=== PATIENT | female | born 1965 | race Caucasian/White ===

== ENCOUNTER 2017-09-26 12:55 | Emergency (ER) | payer MEDICARE, MEDICAID ==
[~2017-09-26] VITALS: Ht 157.5 cm; Wt 73.3 kg
[~2017-09-26 12:55] MED LIST: IBUP-1986 PO
[2017-09-26 13:16] VITALS: BP 140/89
== END 2017-09-26 13:52 | disposition home or self-care (01) ==
LOC: ER 12:56
DX: S39.012A Strain of muscle, fascia and tendon of lower back, initial encounter (principal); J45.909 Unspecified asthma, uncomplicated; K21.9 Gastro-esophageal reflux disease without esophagitis; E11.9 Type 2 diabetes mellitus without complications; W18.30XA Fall on same level, unspecified, initial encounter; Y93.89 Activity, other specified; Y92.89 Other specified places as the place of occurrence of the external cause; Y99.8 Other external cause status
CPT/HCPCS: 99281

== ENCOUNTER 2017-10-02 18:10 | Emergency (ER) | payer MEDICARE, MEDICAID ==
[~2017-10-02] VITALS: Ht 157.5 cm; Wt 73.2 kg
[2017-10-02 19:27] VITALS: BP 125/79
== END 2017-10-02 19:29 | disposition home or self-care (01) ==
LOC: ER 18:13
DX: S83.002A Unspecified subluxation of left patella, initial encounter (principal); J45.909 Unspecified asthma, uncomplicated; K21.9 Gastro-esophageal reflux disease without esophagitis; E11.9 Type 2 diabetes mellitus without complications; Z90.710 Acquired absence of both cervix and uterus; Z79.899 Other long term (current) drug therapy; X58.XXXA Exposure to other specified factors, initial encounter; Y93.89 Activity, other specified; Y92.89 Other specified places as the place of occurrence of the external cause; Y99.8 Other external cause status
CPT/HCPCS: 29505; 73564; 99284

== ENCOUNTER 2019-02-26 11:57 | Emergency (ER) | payer MEDICARE, BC ==
[~2019-02-26] VITALS: Ht 157.5 cm; Wt 73.6 kg
[2019-02-26 12:02] VITALS: BP 112/78
== END 2019-02-26 15:08 | disposition home or self-care (01) ==
LOC: ER 11:58
DX: G57.62 Lesion of plantar nerve, left lower limb (principal); J45.909 Unspecified asthma, uncomplicated; K21.9 Gastro-esophageal reflux disease without esophagitis; E11.9 Type 2 diabetes mellitus without complications; Z86.69 Personal history of other diseases of the nervous system and sense organs; Z90.49 Acquired absence of other specified parts of digestive tract; Z90.710 Acquired absence of both cervix and uterus; Z98.890 Other specified postprocedural states; Z79.1 Long term (current) use of non-steroidal anti-inflammatories (NSAID); W22.8XXA Striking against or struck by other objects, initial encounter; Y93.89 Activity, other specified; Y92.89 Other specified places as the place of occurrence of the external cause; Y99.8 Other external cause status
CPT/HCPCS: 73630; 99283

== ENCOUNTER 2019-06-20 10:46 | Emergency (ER) | payer MEDICARE, MEDICAID ==
[~2019-06-20] VITALS: Ht 157.5 cm; Wt 71.4 kg
[2019-06-20] MEDS ORDERED: morphine 4 MG/ML inj SYRINge IM ONE (11:55)
[2019-06-20] MEDS ORDERED: ondansetron 4mg rapidly disintigrating tab PO ONE (11:55)
[2019-06-20] MEDS ORDERED: HYDR-4383 PO (12:53)
[2019-06-20] MEDS ORDERED: IBUP-1984 PO (12:53)
[2019-06-20] MEDS ORDERED: ONDA4TAB6 PO (12:53)
[2019-06-20 13:02] VITALS: BP 128/89
== END 2019-06-20 13:07 | disposition home or self-care (01) ==
LOC: ER 10:46
DX: S30.0XXA Contusion of lower back and pelvis, initial encounter (principal); J45.909 Unspecified asthma, uncomplicated; K21.9 Gastro-esophageal reflux disease without esophagitis; E11.9 Type 2 diabetes mellitus without complications; F10.99 Alcohol use, unspecified with unspecified alcohol-induced disorder; Z90.710 Acquired absence of both cervix and uterus; Z90.49 Acquired absence of other specified parts of digestive tract; Z98.890 Other specified postprocedural states; Z86.2 Personal history of diseases of the blood and blood-forming organs and certain disorders involving the immune mechanism; Z79.899 Other long term (current) drug therapy; W01.0XXA Fall on same level from slipping, tripping and stumbling without subsequent striking against object, initial encounter; Y93.89 Activity, other specified; Y92.89 Other specified places as the place of occurrence of the external cause; Y99.8 Other external cause status; Y90.9 Presence of alcohol in blood, level not specified
CPT/HCPCS: 72192; 96372; 99284; J2270

== ENCOUNTER 2019-11-18 10:47 | Emergency (ER) | payer MEDICARE, MEDICAID ==
[~2019-11-18] VITALS: Ht 157.5 cm; Wt 75.0 kg
[~2019-11-18 10:47] MED LIST changes: +HYDR-4383 PO; +ONDA4TAB6 PO
[2019-11-18 10:50] VITALS: BP 161/72
[2019-11-18] MEDS ORDERED: triamcinolone acetonide 40mg/ml inj IM ONE (12:15)
[2019-11-18] MEDS ORDERED: DIPH-423 PO (12:16)
[2019-11-18] MEDS ORDERED: EPIN0.3P3 IM (12:16)
== END 2019-11-18 12:42 | disposition home or self-care (01) ==
LOC: ER 10:47
DX: T63.441A Toxic effect of venom of bees, accidental (unintentional), initial encounter (principal); J45.909 Unspecified asthma, uncomplicated; K21.9 Gastro-esophageal reflux disease without esophagitis; E11.9 Type 2 diabetes mellitus without complications; Z86.69 Personal history of other diseases of the nervous system and sense organs; Z90.49 Acquired absence of other specified parts of digestive tract; Z90.710 Acquired absence of both cervix and uterus; Z98.890 Other specified postprocedural states; Z72.89 Other problems related to lifestyle; Z79.899 Other long term (current) drug therapy; Y92.89 Other specified places as the place of occurrence of the external cause
CPT/HCPCS: 96372; 99283; J3301

== ENCOUNTER 2020-11-10 19:30 | Emergency (ER) | payer MEDICARE, MEDICAID ==
[~2020-11-10] VITALS: Ht 157.5 cm; Wt 68.2 kg
[~2020-11-10 19:30] MED LIST changes: +DIPH-423 PO; +EPIN0.3P3 IM
[2020-11-10] MEDS ORDERED: normal saline 1000ML IV soln IVB ONE (19:35)
[2020-11-10] MEDS ORDERED: LORazepam 2 mg/ml vial IV ONE (19:35)
[2020-11-10 20:00] LABS: BASOPHILS # (AUTO) 0.1 X10'3 (0-0.2); BASOPHILS % (AUTO) 1.1 % (0-1); EOSINOPHILS # (AUTO) 0.2 X10'3 (0-0.9); EOSINOPHILS % (AUTO) 2.8 % (0-6); HEMATOCRIT 42.9 % (35.0-45.0); HEMOGLOBIN 14.5 g/dl (12.0-16.0); LYMPHOCYTES # (AUTO) 3.6 X10'3 (1.1-4.8); LYMPHOCYTES % (AUTO) 49.2 % (21-51); MEAN CORPUSCULAR HEMOGLOBIN 33.9 PG (27.0-31.0); MEAN CORPUSCULAR HGB CONC 33.8 g/dL (33.0-36.5); MEAN CORPUSCULAR VOLUME 100.3 FL (78-98); MEAN PLATELET VOLUME 8.2 FL (7.4-10.4); MONOCYTES # (AUTO) 0.4 X10'3 (0-0.9); NEUTROPHILS % (AUTO) 40.9 % (42-75); PLATELET COUNT 266 X10'3 (140-440); RED BLOOD COUNT 4.28 X10'6 (4.20-5.60); RED CELL DISTRIBUTION WIDTH 12.3 % (11.5-14.5); WHITE BLOOD COUNT 7.4 X10'3 (4.5-11.0)
[2020-11-10 20:06] LABS: ALANINE AMINOTRANSFERASE 21 U/L (12-78); ALBUMIN 3.7 G/DL (3.4-5.0); ALKALINE PHOSPHATASE 50 IU/L (46-116); ANION GAP 13 (8-16); ASPARTATE AMINO TRANSFERASE 17 U/L (10-37); BILIRUBIN,TOTAL 0.2 MG/DL (0.1-1.0); BLOOD UREA NITROGEN 10 MG/DL (7-18); BUN/CREATININE RATIO 14.1 (6.6-38.0); CALCIUM 8.5 MG/DL (8.5-10.1); CHLORIDE 106 MMOL/L (99-107); CREATININE 0.71 MG/DL (0.40-0.90); GLUCOSE 136 MG/DL (70-104); POTASSIUM 3.9 MMOL/L (3.5-5.1); SODIUM 142 MMOL/L (135-145); TOTAL CARBON DIOXIDE 23.5 MMOL/L (24-32); TOTAL PROTEIN 7.5 G/DL (6.4-8.2); eGFR 85 ML/MIN
[2020-11-10 20:08] LABS: CARBAMAZEPINE (TEGRETOL) 6.6 UG/ML (4.0-12.0)
[2020-11-10 20:20] LABS: ETHANOL < 0.010 GM/DL (0.0-0.010)
[2020-11-10] MEDS ORDERED: carBAMazepine 100mg chewable tablet PO ONE (21:00)
[2020-11-10 21:47] LABS: URINE AMPHETAMINE SCREEN NEGATIVE (Neg); URINE BARBITUATE SCREEN NEGATIVE (Neg); URINE BENZODIAZEPINES SCREEN NEGATIVE (Neg); URINE CANNABINOID SCREEN POSITIVE (Neg); URINE COCAINE SCREEN NEGATIVE (Neg); URINE METHADONE SCREEN NEGATIVE (Neg); URINE OPIATE SCREEN NEGATIVE (Neg); URINE PHENCYCLIDINE SCREEN NEGATIVE (Neg)
[2020-11-10 22:11] VITALS: BP 118/78
== END 2020-11-10 22:05 | disposition home or self-care (01) ==
LOC: ER 19:31
DX: G40.909 Epilepsy, unspecified, not intractable, without status epilepticus (principal); J45.909 Unspecified asthma, uncomplicated; K21.9 Gastro-esophageal reflux disease without esophagitis; E11.9 Type 2 diabetes mellitus without complications; Z90.49 Acquired absence of other specified parts of digestive tract; Z98.890 Other specified postprocedural states; Z72.89 Other problems related to lifestyle; Z90.710 Acquired absence of both cervix and uterus; Z98.891 History of uterine scar from previous surgery; Z79.899 Other long term (current) drug therapy
CPT/HCPCS: 36415; 71045; 80053; 80156; 80305; 80320; 82948; 85025; 96361; 96374; 99284; J2060; J7030

== ENCOUNTER 2022-07-29 19:36 | Emergency (ER) | payer MEDICARE, MEDICAID ==
[~2022-07-29] VITALS: Ht 157.5 cm; Wt 57.3 kg
[2022-07-29 19:52] VITALS: BP 139/71
[2022-07-29] MEDS ORDERED: HYDROcodone/acetaminophen 5mg/325mg tablet PO ONE (21:05)
== END 2022-07-29 22:02 | disposition home or self-care (01) ==
LOC: ER 19:37
DX: M25.531 Pain in right wrist (principal); J45.909 Unspecified asthma, uncomplicated; K21.9 Gastro-esophageal reflux disease without esophagitis; E11.9 Type 2 diabetes mellitus without complications; Z90.49 Acquired absence of other specified parts of digestive tract; Z90.710 Acquired absence of both cervix and uterus; Z98.890 Other specified postprocedural states; Z72.89 Other problems related to lifestyle; Z79.899 Other long term (current) drug therapy; W18.39XA Other fall on same level, initial encounter; Y93.89 Activity, other specified; Y92.89 Other specified places as the place of occurrence of the external cause; Y99.8 Other external cause status
CPT/HCPCS: 29125; 73110; 99284; L3908

== ENCOUNTER 2022-11-15 12:47 | Emergency (ER) | payer MEDICARE, MEDICAID ==
[~2022-11-15] VITALS: Ht 157.5 cm; Wt 58.6 kg
[2022-11-15 12:48] VITALS: BP 119/87
[2022-11-15] MEDS ORDERED: IBUP-1985 PO (13:24)
[2022-11-15] MEDS ORDERED: OXYC-145 PO (13:24)
[2022-11-15] MEDS ORDERED: HYDROcodone/acetaminophen 5mg/325mg tablet PO ONE (13:30)
== END 2022-11-15 14:02 | disposition home or self-care (01) ==
LOC: ER 12:47
DX: S52.92XA Unspecified fracture of left forearm, initial encounter for closed fracture (principal); K21.9 Gastro-esophageal reflux disease without esophagitis; E11.9 Type 2 diabetes mellitus without complications; J45.909 Unspecified asthma, uncomplicated; Z90.49 Acquired absence of other specified parts of digestive tract; Z79.899 Other long term (current) drug therapy; W18.2XXA Fall in (into) shower or empty bathtub, initial encounter; Y93.89 Activity, other specified; Y92.89 Other specified places as the place of occurrence of the external cause; Y99.8 Other external cause status
CPT/HCPCS: 29125; 73110; 99283; A6446; A6449

== ENCOUNTER 2022-11-17 08:45 | Emergency (ER) | payer MEDICARE, MEDICAID ==
[~2022-11-17] VITALS: Ht 157.5 cm; Wt 61.4 kg
[~2022-11-17 08:45] MED LIST changes: +IBUP-1985 PO; +OXYC-145 PO
[2022-11-17 09:01] VITALS: BP 117/78
[2022-11-17] MEDS ORDERED: ketorolac trometh inj. 60 MG/2 ML VIAL IM ONE (10:05)
[2022-11-17] MEDS ORDERED: LIDOcaine 5% patch TP ONE (10:05)
[2022-11-17] MEDS ORDERED: LIDO700A32 TOP (10:06)
[2022-11-17] MEDS ORDERED: ALBU6.7H14 INH (10:06)
== END 2022-11-17 10:22 | disposition home or self-care (01) ==
LOC: ER 08:46
DX: S20.212A Contusion of left front wall of thorax, initial encounter (principal); R07.81 Pleurodynia; J45.909 Unspecified asthma, uncomplicated; K21.9 Gastro-esophageal reflux disease without esophagitis; E11.9 Type 2 diabetes mellitus without complications; Z98.890 Other specified postprocedural states; Z90.710 Acquired absence of both cervix and uterus; W19.XXXA Unspecified fall, initial encounter; Y93.89 Activity, other specified; Y92.89 Other specified places as the place of occurrence of the external cause; Y99.8 Other external cause status
CPT/HCPCS: 71045; 96372; 99284; J1885

== ENCOUNTER 2023-04-17 09:06 | Emergency (ER) | payer MEDICARE, MEDICAID ==
[~2023-04-17] VITALS: Ht 157.5 cm; Wt 56.0 kg
[~2023-04-17 09:06] MED LIST changes: +ALBU6.7H14 INH; +LIDO700A32 TOP
[2023-04-17 09:07] VITALS: TEMP 97
[2023-04-17 10:10] LABS: BASOPHILS % (AUTO) 0.3 % (0-1); EOSINOPHILS % (AUTO) 0.1 % (0-6); HEMATOCRIT 49.3 % (35.0-45.0); HEMOGLOBIN 16.6 g/dl (12.0-16.0); LYMPHOCYTES # (AUTO) 2.3 X10'3 (1.1-4.8); LYMPHOCYTES % (AUTO) 14.1 % (21-51); MEAN CORPUSCULAR HEMOGLOBIN 32.9 PG (27.0-31.0); MEAN CORPUSCULAR HGB CONC 33.6 g/dL (33.0-36.5); MEAN CORPUSCULAR VOLUME 97.8 FL (78-98); MEAN PLATELET VOLUME 8.1 FL (7.4-10.4); MONOCYTES # (AUTO) 1.4 X10'3 (0-0.9); MONOCYTES % (AUTO) 8.7 % (2-12); NEUTROPHILS # (AUTO) 12.7 X10'3 (1.8-7.7); NEUTROPHILS % (AUTO) 76.8 % (42-75); PLATELET COUNT 337 X10'3 (140-440); RED BLOOD COUNT 5.04 X10'6 (4.20-5.60); RED CELL DISTRIBUTION WIDTH 13.1 % (11.5-14.5); WHITE BLOOD COUNT 16.5 X10'3 (4.5-11.0)
--- NOTE | 2023-04-17 10:20 | NUR ---
Reminded pt that we need a urine sample. at bedside.
[2023-04-17 10:21] LABS: ALANINE AMINOTRANSFERASE 22 U/L (12-78); ALBUMIN 4.1 G/DL (3.4-5.0); ALKALINE PHOSPHATASE 54 IU/L (46-116); ANION GAP 13 (8-16); ASPARTATE AMINO TRANSFERASE 16 U/L (10-37); BLOOD UREA NITROGEN 16 MG/DL (7-18); BUN/CREATININE RATIO 15.4 (10.0-20.0); CHLORIDE 99 MMOL/L (99-107); CREATININE 1.04 MG/DL (0.40-0.90); GLUCOSE 250 MG/DL (70-104); POTASSIUM 3.2 MMOL/L (3.5-5.1); SODIUM 135 MMOL/L (135-145); TOTAL CARBON DIOXIDE 22.9 MMOL/L (24-32); TOTAL PROTEIN 8.4 G/DL (6.4-8.2); eCRCL 47 ML/MIN; eGFR 54 ML/MIN
[2023-04-17 10:26] LABS: LIPASE 42 U/L (16-77)
[2023-04-17] MEDS ORDERED: GLYC-18 RC (10:41)
[2023-04-17] MEDS ORDERED: MAG1CAPS5 PO (10:41)
[2023-04-17] MEDS ORDERED: ONDA4TAB12 PO (10:41)
[2023-04-17] MEDS ORDERED: ondansetron/PF 4mg/2ml inj IM ONE (10:45)
[2023-04-17 11:04] VITALS: BP 100/80; PULSE 108; RESP 18; O2SAT 98
== END 2023-04-17 11:06 | disposition home or self-care (01) ==
LOC: ER 09:06
DX: K59.00 Constipation, unspecified (principal); K21.9 Gastro-esophageal reflux disease without esophagitis; E11.9 Type 2 diabetes mellitus without complications; J45.909 Unspecified asthma, uncomplicated; Z90.49 Acquired absence of other specified parts of digestive tract; Z98.890 Other specified postprocedural states; Z79.899 Other long term (current) drug therapy
CPT/HCPCS: 80053; 82948; 83690; 85025; 93005; 96372; 99284; J2405; A4615

== ENCOUNTER 2023-09-10 17:35 | Emergency (ER) | payer MEDICARE, MEDICAID ==
[~2023-09-10] VITALS: Ht 157.5 cm; Wt 61.2 kg
[~2023-09-10 17:35] MED LIST changes: +GLYC-147 RC; +MAG1CAPS5 PO; +ONDA4TAB12 PO
[2023-09-10 17:37] VITALS: BP 127/70; PULSE 105; RESP 16; TEMP 98.5; O2SAT 99
== END 2023-09-10 20:19 | disposition left against medical advice (07) ==
LOC: ER 17:35
DX: S01.91XA Laceration without foreign body of unspecified part of head, initial encounter (principal); Z53.21 Procedure and treatment not carried out due to patient leaving prior to being seen by health care provider; W01.190A Fall on same level from slipping, tripping and stumbling with subsequent striking against furniture, initial encounter; Y93.89 Activity, other specified; Y92.89 Other specified places as the place of occurrence of the external cause; Y99.8 Other external cause status
CPT/HCPCS: 99281

== ENCOUNTER 2024-01-31 16:34 | Emergency (ER) | payer MEDICARE, MEDICAID ==
[~2024-01-31] VITALS: Ht 157.5 cm; Wt 57.3 kg
[~2024-01-31 16:34] MED LIST changes: +ONDA-243 PO; -ONDA4TAB12 PO
[2024-01-31 17:21] LABS: BASOPHILS # (AUTO) 0.1 X10'3 (0-0.2); BASOPHILS % (AUTO) 1.2 % (0-1); EOSINOPHILS # (AUTO) 0.1 X10'3 (0-0.9); EOSINOPHILS % (AUTO) 1.8 % (0-6); HEMATOCRIT 40.3 % (35.0-45.0); HEMOGLOBIN 13.5 g/dl (12.0-16.0); LYMPHOCYTES # (AUTO) 1.8 X10'3 (1.1-4.8); LYMPHOCYTES % (AUTO) 30.9 % (21-51); MEAN CORPUSCULAR HEMOGLOBIN 32.7 PG (27.0-31.0); MEAN CORPUSCULAR HGB CONC 33.6 g/dL (33.0-36.5); MEAN CORPUSCULAR VOLUME 97.4 FL (78-98); MEAN PLATELET VOLUME 7.7 FL (7.4-10.4); MONOCYTES # (AUTO) 0.4 X10'3 (0-0.9); MONOCYTES % (AUTO) 7.9 % (2-12); NEUTROPHILS # (AUTO) 3.3 X10'3 (1.8-7.7); NEUTROPHILS % (AUTO) 58.2 % (42-75); PLATELET COUNT 267 X10'3 (140-440); RED BLOOD COUNT 4.13 X10'6 (4.20-5.60); WHITE BLOOD COUNT 5.7 X10'3 (4.5-11.0)
[2024-01-31] MEDS ORDERED: FAMO-280 PO (17:21)
[2024-01-31] MEDS ORDERED: PRED20TA PO (17:21)
[2024-01-31 17:29] LABS: ALBUMIN 3.7 G/DL (3.4-5.0); ANION GAP 11 (8-16); BLOOD UREA NITROGEN 10 MG/DL (7-18); BUN/CREATININE RATIO 8.5 (10.0-20.0); CALCIUM 9.3 MG/DL (8.5-10.1); CHLORIDE 104 MMOL/L (99-107); CREATININE 1.17 MG/DL (0.40-0.90); GLUCOSE 179 MG/DL (70-104); POTASSIUM 3.5 MMOL/L (3.5-5.1); SODIUM 140 MMOL/L (135-145); TOTAL CARBON DIOXIDE 24.8 MMOL/L (24-32); eCRCL 41 ML/MIN; eGFR 48 ML/MIN
[2024-01-31] MEDS: methylPREDNISolone sod succ 125mg/2ml vial IV ONE (17:29)
[2024-01-31] MEDS: famotidine/PF 10 mg/ml inj IV ONE (17:29)
[2024-01-31] MEDS ORDERED: EPIN0.3P3 IM (17:38)
[2024-01-31 17:40] VITALS: BP 141/79; PULSE 90; RESP 20; TEMP 99.5; O2SAT 98
[2024-01-31] MEDS ORDERED: famotidine/PF IV inj 20 MG in normal saline 100ml IV soln 100 ML IV ONE (20:00)
== END 2024-01-31 17:56 | disposition home or self-care (01) ==
LOC: ER 16:35
DX: T63.441A Toxic effect of venom of bees, accidental (unintentional), initial encounter (principal); J45.909 Unspecified asthma, uncomplicated; K21.9 Gastro-esophageal reflux disease without esophagitis; E11.9 Type 2 diabetes mellitus without complications; F10.90 Alcohol use, unspecified, uncomplicated; Z90.49 Acquired absence of other specified parts of digestive tract; Z90.710 Acquired absence of both cervix and uterus; Z98.890 Other specified postprocedural states; Z91.030 Bee allergy status; Z79.899 Other long term (current) drug therapy; Z79.1 Long term (current) use of non-steroidal anti-inflammatories (NSAID); Y92.89 Other specified places as the place of occurrence of the external cause
CPT/HCPCS: 36415; 80048; 85025; 96374; 96375; 99284; J2919; J3490

== ENCOUNTER 2024-06-17 09:51 | Emergency (ER) | payer MEDICARE, MEDICAID ==
[~2024-06-17] VITALS: Ht 157.5 cm; Wt 52.9 kg
[~2024-06-17 09:51] MED LIST changes: +FAMO-280 PO
[2024-06-17 09:55] VITALS: BP 132/71; PULSE 94; RESP 16; TEMP 97.5; O2SAT 100
== END 2024-06-17 11:01 | disposition home or self-care (01) ==
LOC: ER 09:51
DX: S63.682A Other sprain of left thumb, initial encounter (principal); J45.909 Unspecified asthma, uncomplicated; E11.9 Type 2 diabetes mellitus without complications; K21.9 Gastro-esophageal reflux disease without esophagitis; Z90.710 Acquired absence of both cervix and uterus; Z90.49 Acquired absence of other specified parts of digestive tract; Z91.030 Bee allergy status; Z79.1 Long term (current) use of non-steroidal anti-inflammatories (NSAID); Z79.899 Other long term (current) drug therapy; X58.XXXA Exposure to other specified factors, initial encounter; Y93.89 Activity, other specified; Y92.89 Other specified places as the place of occurrence of the external cause; Y99.8 Other external cause status
CPT/HCPCS: 29125; 73130; 99283

== ENCOUNTER 2024-12-16 20:15 | Emergency (ER) | payer MEDICARE, MEDICAID ==
[~2024-12-16] VITALS: Ht 157.5 cm; Wt 69.1 kg
[~2024-12-16 20:15] MED LIST changes: +LIDO-52 TOP; -LIDO700A32 TOP
--- NOTE | 2024-12-16 20:43 | ELECTROCARDIOGRAPH REPORT ---
[facility] Test Date: 2024-12-16 Test Time: 20:42:07 Pat Name: DEBRA HUGGINS Department: [facility] Patient ID: [id number] Room: Gender: F Individual Small Group Instructor: : 1965 Requested By: EVERARDO CURTIS Order Number: [id number] Reading MD: Dr. Aram Augustin Measurements Intervals [place] Rate: 79 P: 56 VT: 111 QRS: 26 QRSD: 98 T: -17 QT: 401 QTc: 460 Interpretive Statements Sinus rhythm Borderline short VT interval Inferior infarct, age indeterminate Baseline wander in lead(s) V1 Electronically Signed On 12-20-2024 18:36:[address] Aram Augustin Please click the below link to view image of tracing.
[2024-12-16 20:53] LABS: BASOPHILS # (AUTO) 0.1 X10'3 (0-0.2); BASOPHILS % (AUTO) 1.1 % (0-1); EOSINOPHILS # (AUTO) 0.2 X10'3 (0-0.9); EOSINOPHILS % (AUTO) 3.4 % (0-6); HEMATOCRIT 41.9 % (35.0-45.0); HEMOGLOBIN 14.2 g/dl (12.0-16.0); LYMPHOCYTES # (AUTO) 2.3 X10'3 (1.1-4.8); LYMPHOCYTES % (AUTO) 46.7 % (21-51); MEAN CORPUSCULAR HGB CONC 33.9 g/dL (33.0-36.5); MEAN CORPUSCULAR VOLUME 94.4 FL (78-98); MEAN PLATELET VOLUME 7.4 FL (7.4-10.4); MONOCYTES # (AUTO) 0.4 X10'3 (0-0.9); MONOCYTES % (AUTO) 8.7 % (2-12); NEUTROPHILS % (AUTO) 40.1 % (42-75); PLATELET COUNT 265 X10'3 (140-440); RED BLOOD COUNT 4.44 X10'6 (4.20-5.60); RED CELL DISTRIBUTION WIDTH 13.2 % (11.5-14.5)
[2024-12-16 21:04] LABS: ALBUMIN 3.7 G/DL (3.4-5.0); ANION GAP 7 (8-16); BLOOD UREA NITROGEN 11 MG/DL (7-18); BUN/CREATININE RATIO 9.8 (10.0-20.0); CALCIUM 9.1 MG/DL (8.5-10.1); CHLORIDE 108 MMOL/L (99-107); CREATININE 1.12 MG/DL (0.40-0.90); GLUCOSE 176 MG/DL (70-104); POTASSIUM 4.1 MMOL/L (3.5-5.1); SODIUM 142 MMOL/L (135-145); TOTAL CARBON DIOXIDE 27.4 MMOL/L (24-32); eCRCL 43 ML/MIN; eGFR 50 ML/MIN
--- NOTE | 2024-12-16 21:27 | RADIOLOGY REPORT ---
CHEST RADIOGRAPH Indication: CP Technique: Single frontal view of the chest was obtained COMPARISON: CHEST,SINGLE VIEW on DOS: 11/17/22, CHEST,SINGLE VIEW on DOS: 11/10/20 FINDINGS: Lines and Tubes: None Lungs: Clear Pleura: No effusion. No pneumothorax. Cardiomediastinal contours: Unremarkable Bones: Unremarkable IMPRESSION: 1. No acute disease.
--- NOTE | 2024-12-16 22:05 | Physician Documentation ---
History of Present Illness ~ General Chief Complaint: Multiple Medical Complaints Stated Complaint: SZ/MIGRAINE Time Seen by MD: 23:53 Primary Medical Doctor: LISA OREILLY- DR. SIM History of Present Illness Initial Comments Patient presents to the emergency room for evaluation of headache that has been going on for the past four days as well as some associated petite mal seizures. Patient also has history of pseudoseizures. She reports she has been taken a regular regimen however it has been unhelpful. Denies any fevers. Headache is located in bilateral forehead Medication Reconciliation Allergies: Coded Allergies: bee venom protein (honey bee) (Verified Allergy, Severe, severe allergy, 06/17/24) Scheduled Albuterol Sulfate (Proventil Hfa), 2 PUFFS INH Q6H Diphenhydramine Hcl (Benadryl), 25 MG PO TID Epinephrine (Epipen 2-Jeremías), 1 SYR IM ONCE Epinephrine (Epipen 2-Jeremías), 1 SYR IM ONCE Famotidine (Famotidine), 1 TAB PO BID Hydrocodone/Acetaminophen ([place] 5-325 Tablet), 1 TAB PO TID PRN Ibuprofen (Ibuprofen), 1 TAB PO Q8H Ibuprofen (Ibuprofen), 1 TAB PO Q8H Lidocaine (Lidoderm), 1 PATCH TOP DAILY Mag Citrate/Potassium Citrate (K-mg Citrate 99-70 mg Capsule), 1 BOTTLE PO ONCE Ondansetron Hcl (Zofran), 1 TAB PO Q6H Scheduled PRN Glycerin (Glycerin), 1 EACH RC PRN PRN for constipation ONDANSETRON ODT 4mg tablet (Ondansetron Odt), 1 TABLET PO Q6H PRN for nausea/vomiting Oxycodone HCl/Acetaminophen (Percocet 5-325 mg Tablet), 1 TAB PO TID PRN PRN for FRACTURE Past Medical History Past Medical History: Seizures, Asthma, GERD, Diabetes Past Surgical History: appendectomy, brain surgery, , hysterectomy, other Alcohol Use: Sober Drug Use: none Lives with: Family Lives In: Home Review of Systems ROS All review of systems negative except as per HPI Physical Exam Physical Exam Vital Signs: Temperature: 97.3, Source: Oral, Heart Rate: 82, Respiratory Rate: 15, BP: 127/101, Pulse Oximetry: 98, Weight: 69.100 Oxygen Flow Rate: 0 Physical Exam General: Patient is awake, alert, oriented x4 in no acute distress and well appearing.~ Head: Normocephalic and atraumatic. Eyes: Conjunctival normal. EOMI. PERRL. ENT: Mucous membranes moist. No tongue bites Neck: Supple, trachea is midline. Chest: Clear to auscultation bilaterally without rales, rhonchi, or wheezes. There is no accessory muscle use or retractions. Cardiac: RRR without murmurs, gallops, or rubs. Abd: Soft, nondistended, nontender, with normoactive bowel sounds. No guarding, rebound, or rigidity. Progress Results/Orders Results/Orders Orders - WILMAN TIM MD Chest,Single View (12/16/24 21:15) Monitor (12/16/24 20:38) Saline Lock (12/16/24 20:38) Oxygen (12/16/24 20:38) Metoclopramide Inj (Reglan Inj) (12/17/24 01:05) Completed Orders - WILMAN TIM MD Chest,Single View (12/16/24 21:15) Cbc/Diff (12/16/24 20:38) BMP (12/16/24 20:38) Electrocardiogram (12/16/24 20:38) Hs Troponin I W Calculations (12/16/24 20:38) Hs Troponin I W Calculations (12/16/24 22:38) Normal Saline 1000ml (Sodium Chloride 10 (12/17/24 00:05) Prochlorperazine Inj (Compazine Inj) (12/17/24 00:05) Diphenhydramine Inj (Benadryl Inj.) (12/17/24 00:05) Ketorolac Trometh 15mg/Ml Vial (Toradol (12/17/24 00:05) Acetaminophen 1,000mg/100ml Iv (Ofirmev (12/17/24 00:05) Medications Received in ER Medications (Trade) Dose Ordered Sig/Talia Route PRN Reason Start Time Stop Time Status Last Admin Dose Admin Sodium Chloride 1,000 ml @ 1,000 mls/hr ONCE ONCE IV 12/17/24 00:05 12/17/24 01:04 DC 12/17/24 00:24 1,000 MLS/HR (Compazine inj) 10 mg ONCE ONCE IV 12/17/24 00:05 12/17/24 00:06 DC 12/17/24 00:26 10 MG (Benadryl inj.) 25 mg ONCE ONCE IV 12/17/24 00:05 12/17/24 00:06 DC 12/17/24 00:28 25 MG (Toradol injection) 15 mg ONCE ONCE IV 12/17/24 00:05 12/17/24 00:14 DC 12/17/24 00:26 15 MG Acetaminophen 100 ml @ 400 mls/hr ONCE ONCE IV 12/17/24 00:05 12/17/24 00:19 DC 12/17/24 00:24 400 MLS/HR Vital Signs 12/16/24 12/16/24 12/17/24 12/17/24 20:36 21:26 00:30 00:33 Temp 97.7 97.3 97.3 Pulse 82 82 61 Resp 16 15 15 B/P (MAP) 147/82 127/101 (110) 131/85 (100) Pulse Ox 99 98 97 O2 Flow Rate 0 0 Laboratory Tests Test 12/16/24 20:47 12/16/24 22:37 White Blood Count 5.0 Red Blood Count 4.44 Hemoglobin 14.2 Hematocrit 41.9 Mean Corpuscular Volume 94.4 Mean Corpuscular Hemoglobin 32.0 H Mean Corpuscular Hemoglobin Concent 33.9 Red Cell Distribution Width 13.2 Platelet Count 265 Mean Platelet Volume 7.4 Neutrophils (%) (Auto) 40.1 L Lymphocytes (%) (Auto) 46.7 Monocytes (%) (Auto) 8.7 Eosinophils (%) (Auto) 3.4 Basophils (%) (Auto) 1.1 H Neutrophils # (Auto) 2.0 Lymphocytes # (Auto) 2.3 Monocytes # (Auto) 0.4 Eosinophils # (Auto) 0.2 Basophils # (Auto) 0.1 CBC Comment Sodium Level 142 Potassium Level 4.1 Chloride Level 108 H Carbon Dioxide Level 27.4 Anion Gap 7 L Blood Urea Nitrogen 11 Creatinine 1.12 H Estimated GFR/1.73 m2 50 BUN/Creatinine Ratio 9.8 L Glucose Level 176 H Calcium Level 9.1 Troponin I High Sensitivity 4 4 Albumin 3.7 Chemistry Comments Troponin I High Sens Percent Delta 0 Troponin I Hi Sens Absolute Change 0 EKG/XRAY/CT/US/VASC/MRI EKG : Additional Comment EKG interpreted by myself shows time of 2041, rate 79, sinus rhythm, normal axis, no ST changes Chest X-Ray : Additional Comments Exam: CHEST,SINGLE VIEW CHEST RADIOGRAPH Indication: CP Technique: Single frontal view of the chest was obtained COMPARISON: CHEST,SINGLE VIEW on DOS: 11/17/22, CHEST,SINGLE VIEW on DOS: 11/10/20 FINDINGS: Lines and Tubes: None Lungs: Clear Pleura: No effusion. No pneumothorax. Cardiomediastinal contours: Unremarkable Bones: Unremarkable IMPRESSION: 1. No acute disease. : Impression Exam: CT HEAD EXAM: CT CT HEAD INDICATION: MIGRAINES ,SEIZURES TECHNIQUE: CT of the head without intravenous contrast. Radiation Dose : 1. Head: CT Dose: CTDI volume is 58 mGy. Dose-length product is 1073 mGy*cm The dose indicators for CT are the volume Computed Tomography (CT) Dose Index (CTDIvol) and the Dose Length Product (DLP), and are measured in units of mGy and mGy-cm, respectively. These indicators are not patient dose, but values generated from the CT scanner acquisition factors. The report includes radiation exposure data for exposures received during this examination. COMPARISON: None FINDINGS: There is no evidence of acute intracranial hemorrhage, extra-axial collection, mass effect, midline shift, herniation or hydrocephalus. Encephalomalacia is seen in the left parieto-occipital region The ventricles, sulci and cisterns are age appropriate. The echeverria-white differentiation is intact. Patchy periventricular and subcortical white matter hypoattenuation is nonspecific but may be related to small vessel ischemic disease. The visualized paranasal sinuses and mastoid air cells are clear. 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 No acute intracranial abnormality. Radiation optimization: All CT scans at this facility use at least one of these dose optimization techniques: automated exposure control mA and/or kV adjustment per patient size (includes targeted exams where dose is matched to clinical indication) or iterative reconstruction. Medical Decision Making Findings Patient presents to the emergency room with migraine and some degree of seizures. Imaging is reassuring. Labs reassuring. The patient's headache is responding to therapy. Departure Disposition: HOME / SELF CARE / HOMELESS Impression: Primary Impression: Headache Condition: Improved Discharge Instructions: General Headache Without Cause, Ccce-ly-Dexu Referrals: NO PRIMARY CARE PROVIDER (PCP) Signature Scribe Signature: No scribe Attestation: The note accurately reflects work and decisions made by me.Wilman Tim MD 12/17/24 01:05 CYNTHIA FLORES Dec 16, 2024 22:05 WILMAN TIM MD Dec 17, 2024 00:02
--- NOTE | 2024-12-16 22:09 | RADIOLOGY REPORT ---
EXAM: CT CT HEAD INDICATION: MIGRAINES ,SEIZURES TECHNIQUE: CT of the head without intravenous contrast. Radiation Dose : 1. Head: CT Dose: CTDI volume is 58 mGy. Dose-length product is 1073 mGy*cm The dose indicators for CT are the volume Computed Tomography (CT) Dose Index (CTDIvol) and the Dose Length Product (DLP), and are measured in units of mGy and mGy-cm, respectively. These indicators are not patient dose, but values generated from the CT scanner acquisition factors. The report includes radiation exposure data for exposures received during this examination. COMPARISON: None FINDINGS: There is no evidence of acute intracranial hemorrhage, extra-axial collection, mass effect, midline s hift, herniation or hydrocephalus. Encephalomalacia is seen in the left parieto-occipital region The ventricles, sulci and cisterns are age appropriate. The echeverria-white differentiation is intact. Patchy periventricular and subcortical white matter hypoattenuation is nonspecific but may be related to small vessel ischemic disease. The visualized paranasal sinuses and mastoid air cells are clear. 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 No acute intracranial abnormality. Radiation optimization: All CT scans at this facility use at least one of these dose optimization gera hniques: automated exposure control mA and/or kV adjustment per patient size (includes targeted exam s where dose is matched to clinical indication) or iterative reconstruction.
[2024-12-17] MEDS: normal saline 1000ml 1,000 ML IV ONE (00:24)
[2024-12-17] MEDS: acetaminophen 1,000mg/100ml IV 100 ML IV ONE (00:24)
[2024-12-17] MEDS: proCHLORperazine 10 MG/2 ml inj IV ONE (00:26)
[2024-12-17] MEDS: ketorolac trometh 15mg/ml vial 15 MG/ML ML IV ONE (00:26)
[2024-12-17] MEDS: diphenhydrAMINE 50 mg/ml inj IV ONE (00:28)
[2024-12-17 00:33] VITALS: BP 131/85; PULSE 61; RESP 15; O2SAT 97
[2024-12-17] MEDS: metoclopramide 5 mg/ml inj IV ONE (01:21)
[2024-12-17 01:36] VITALS: TEMP 97.3
== END 2024-12-17 01:41 | disposition home or self-care (01) ==
LOC: ER 20:16
DX: R51.9 Headache, unspecified (principal); K21.9 Gastro-esophageal reflux disease without esophagitis; E11.9 Type 2 diabetes mellitus without complications; J45.909 Unspecified asthma, uncomplicated; Z90.49 Acquired absence of other specified parts of digestive tract; Z90.710 Acquired absence of both cervix and uterus; Z91.030 Bee allergy status; Z79.899 Other long term (current) drug therapy
CPT/HCPCS: 36415; 70450; 71045; 80048; 84484; 85025; 93005; 96374; 96375; 99285; J0131; J0780; J1200; J1885; J2765; J7030